=== PATIENT | female | born 1955 | race Caucasian/White ===

== ENCOUNTER 2019-04-12 16:07 | Observation (INO) ==
[2019-04-12 16:51] LABS: Basophils % 0.5 % (0.0-0.8); Eosinophils # 0.1 10*3/uL (0.0-0.87); Hemoglobin 14.9 GM/DL (12.0-16.0); Immature Granulocytes % 0.2 %; Immature Granulocytes Absolute 0.01 #; Lymphocytes # 1.5 10*3/uL (1.4-4.0); Lymphocytes % 23.9 % (21.3-54.2); Mean Corpuscular HGB Conc 33.9 GM/DL (32-36); Mean Corpuscular Volume 96.9 FL (87-102); Mean Platelet Volume 10.4 FL (9.6-12.0); Monocytes % 7.4 % (1.7-12.7); Platelet Count 182 T/CUMM (130-400); Red Blood Count 4.54 MC/CUMM (3.8-5.5); Red Cell Distribution Width 13.3 % (9.3-17.3); White Blood Count 6.1 T/CUMM (4-12)
[2019-04-12 16:58] LABS: Calcium 9.1 MG/DL (8.5-10.1); Osmolality,Calculated 282.8 MOS/KG (273-304)
[2019-04-12] MEDS ORDERED: ASPIRIN EC 325 MG TABLET PO STA (18:47)
[2019-04-12] MEDS ORDERED: NITROGLYCERIN SL 0.4 MG TABLET SL STA (18:47)
[2019-04-12 20:43] LABS: Apearance,Urine CLEAR (Clear); Bilirubin,Urine Negative (Negative); Blood, Urine Small mg/dL (Negative); Glucose,Urine (UA) Negative (Negative); Ketones,Urine 5 mg/dL (Negative); Nitrite,Urine Negative (Negative); Protein,Urine Negative; Urine Color Colorless (Yellow); Urine Specific Gravity 1.003 (1.001-1.035); Urine Urobilinogen < 2.0 EU/DL (0.2-1.0)
[2019-04-12] MEDS ORDERED: ACETAMINOPHEN 500 MG TABLET PO STA (21:55)
[2019-04-12] MEDS ORDERED: ONDANSETRON 4 MG/2 ML VIAL IV PRN (22:11)
[2019-04-12] MEDS ORDERED: BISACODYL 5 MG TABLET PO PRN (22:11)
[2019-04-12] MEDS ORDERED: diphenhydrAMINE CAP 25 MG CAPSULE PO PRN (22:11)
[2019-04-12] MEDS ORDERED: NICOTINE 21 MG/24 HR PATCH TRANSDERM PRN (22:11)
[2019-04-12] MEDS ORDERED: amLODIPine 10 MG TABLET PO ONE (23:04)
[2019-04-13 00:10] LABS: Risk Ratio 3.72; Thyroid Stimulating Hormone 1.92 uIU/ml (0.358-3.74)
[2019-04-13 03:30] LABS: Albumin 3.3 G/DL (3.4-5.0); Bilirubin,Total 0.4 MG/DL (0.2-1.0); Calcium 10.5 MG/DL (8.5-10.1); Osmolality,Calculated 279.1 MOS/KG (273-304); Total Protein 6.2 G/DL (6.4-8.3)
[2019-04-13] MEDS ORDERED: LEVOTHYROXINE 50 MCG TABLET PO SCH (06:30)
[2019-04-13] MEDS ORDERED: PANTOPRAZOLE 40 MG TABLET PO SCH ×2 (09:00→21:00)
[2019-04-13] MEDS ORDERED: PROPRANOLOL 40 MG TABLET PO SCH (09:00)
[2019-04-13] MEDS ORDERED: amLODIPine 10 MG TABLET PO SCH (09:00)
[2019-04-13] MEDS ORDERED: ENOXAPARIN 40 MG/0.4 ML SYRINGE SUBCUT SCH (09:00)
[2019-04-13] MEDS ORDERED: ASPIRIN EC 81 MG TABLET PO SCH (09:00)
[2019-04-13 09:42] LABS: Troponin I < 0.015 NG/ML (0.00-0.045)
[2019-04-13] MEDS: ACETAMINOPHEN 325 MG TABLET PO PRN ×2 (10:35→15:40)
[2019-04-13] MEDS ORDERED: BUTALBITAL/ACETAMIN/CAFFEINE 50-325-40 MG TABLET PO PRN (16:33)
[2019-04-13 16:43] VITALS: BP 166/80
[2019-04-13] MEDS ORDERED: ROSUVASTATIN 10 MG TABLET PO SCH (22:15)
== END 2019-04-13 17:55 | disposition home or self-care (01) ==
LOC: N.ED 16:07 → N.EDINP 16:07 → N.2W 22:52
PROVIDERS: ADMIT Hospitalist; ATTEND Hospitalist